=== PATIENT | male | born 2000 | race Caucasian/White ===

== ENCOUNTER 2024-04-21 13:34 | Outpatient (CLI) | payer OTHER, SELFPAY ==
--- NOTE | 2024-04-21 13:45 | CRLHL7_ITS ---
For Patients: As a result of the Century Cures Act, medical imaging exams and procedure reports are released immediately into your electronic medical record. You may view this report before your referring provider. If you have questions, please contact your health care provider. INDICATION Low back pain. TECHNIQUE: Multiplanar multisequence noncontrast MR images of the lumbar spine. COMPARISON: None. FINDINGS The lumbar lordosis is preserved. Mild leftward lumbar curvature. Vertebral body heights maintained. No acute fracture or spondylolisthesis. No T1 hypointense lesions or marrow edema. Normal conus terminates at L2. T12-L1 through L4-5: No spinal canal or neural foraminal narrowing. L5-S1: Shallow broad-based left subarticular disc protrusion measuring 3 mm in short axis contacts traversing left S1 nerve roots. No spinal canal or neural foraminal narrowing. IMPRESSION: 1. At L5-S1, shallow broad-based left subarticular disc protrusion contacts traversing left S1 nerve roots. 2. Mild leftward lumbar curvature. Dictated by Terence Connors MD @ 04/22/2024 12:50:36 PM (Electronically Signed)
== END 2024-04-21 13:35 | disposition home or self-care (01) ==
LOC: MRI 13:41
PROVIDERS: PCP Chiropractor; Visit Provider Chiropractor
DX: M54.50 Low back pain, unspecified (principal); M51.27 Other intervertebral disc displacement, lumbosacral region; S33.5XXA Sprain of ligaments of lumbar spine, initial encounter
CPT/HCPCS: 72148

== ENCOUNTER 2024-07-27 14:00 | Outpatient (RCR) | payer OTHER, BC, SELFPAY ==
--- NOTE | 2024-06-30 16:05 | PT.OPEX ---
[facility] Out[facility] Eval Start: 06/30/24 14:53 Freq: Status: Active Protocol: Document 06/30/24 14:53 CRP (Rec: 06/30/24 16:04 CRP [id number]) E-signed By Carlin Yousif PT Physical Therapy Outpatient Evaluation Insurance Information Insurance Name [employer] Medical Diagnosis Herniation of L5-S1 intervertebral disc Referring MD Tanja Beltran [employer] Subjective Subjective Pt c.o pain that radiates down L thigh and down to the achilles. January 21 strained and felt like he pulled his hamstring. Within a week or 2 he was having pain down the whole leg. Numbness began about 2 weeks ago into the R big toe. No R LE pain. Has had times recently where he's felt LBP on the L. Has used Naproxen which did help some. Pain can be excruciating where he cannot sit and will need to lay down. Getting out of bed in the morning can be really painful. Needs to walk around to work it out. Sleep has been fine. Pt reports that any activity that causes him to move at his trunk or waist he will have more sxs. Is a student at [employer]. Lives in [place]. Sitting in class has been OK. Current Work Status Student Objective Other/Pertinent Objective Trunk ROM: Ext nuris dec with hamstring pain, Flex mod/nuris dec, R SB min dec, L SB nuris dec with L LE pain, bilat rot min dec Hip ROM: WNL MMT: Myotomes - weakness L grt toe DF SLR: positive on L at 30 degrees Prone lying - needed pillow under hips - was able to move into no pillow and then prone prop on elbows Assessment Assessment/Impression Pt presents to the clinic with low back related LE pain that appears discogenic in nature. Pt demonstrates painful loss of trunk ROM, adverse neurodynamics, hypomobile lumbar spine segments and poor lumbopelvic control. Pt does appear to have an extension preference for exercise. Skilled PT is necessary to incorporate ther ex, nm jose raul, manual therapy and pt education to decrease pain and improve functional mobility. Primary Functional Limitations Sitting Bending Lifting Studying for class Plan of Care Rehabilitation Potential Excellent Physical Therapy Goals 1. Pt will be independent with HEP in 8 weeks. 2. Pt will wake in the mornings and get up for the day with 90% decrease in pain in 10 weeks. 3. Pt will return to recreational activity without c.o in 12 weeks. Coordination/Communication With Referral Source Treatment Plan/Direct Interventions Joint Mobilization,Manual Therapy,Neuromuscular Re-ed, Self-Care/Home Management, Therapeutic Activities, Therapeutic Exercises Frequency/Duration 1-2x/wk for 12 weeks Patient Will Be Discharged From Therapy Completion of LTG(s),Skills Plateau,Independent w/HEP, Independently Progressing Evaluation Billing Untimed Code Treatment Minutes 40 Complexity Moderate Certification Information Provider Signature Required Yes Provider Signature Shows Agreement With POC & Medical Necessity Physician NPI Number Write NPI# Here Physician Comment/Change : Physician Signature & Date Requested Please Sign/Date Here
== END 2024-11-24 23:59 | disposition home or self-care (01) ==
PROVIDERS: Visit Provider Registered Nurse
DX: M51.27 Other intervertebral disc displacement, lumbosacral region (principal); Z51.89 Encounter for other specified aftercare
CPT/HCPCS: 97110; 97140; 97162